=== PATIENT | female | born 2000 | race Caucasian/White ===

== ENCOUNTER → 2019-06-13 | Outpatient (CLI) | payer BC ==
[2019-06-13 13:44] LABS: HEMOGLOBIN 14.1 g/dL (12.0-15.0); MEAN CELL VOLUME 92 fl (78-95); MEAN CORPUSCULAR HEMOGLOBIN 30 pg (26-32); MEAN CORPUSCULAR HGB CONC 33 g/dL (33-37); MEAN PLATELET VOLUME 10.2 fl (7.4-10.4); PLATELET COUNT 256 K/mm3 (130-400); RED CELL DISTRIBUTION WIDTH 12.5 % (11.5-14.5)
[2019-06-13 13:49] LABS: ALBUMIN 4.1 g/dL (3.5-5.0); POTASSIUM 4.2 mmol/L (3.5-5.1); SODIUM 142 mmol/L (136-145)
[2019-06-13 13:50] LABS: CALCIUM 9.8 mg/dL (8.3-10.5)
[2019-06-13 13:51] LABS: TOTAL PROTEIN 7.5 g/dL (6.4-8.3)
[2019-06-13 13:52] LABS: CARBON DIOXIDE 24 mmol/L (22-29); GLUCOSE 85 mg/dL (65-105)
[2019-06-13 13:53] LABS: TOTAL BILIRUBIN 0.5 mg/dL (0.2-1.2)
[2019-06-13 13:57] LABS: AST-SGOT 27 U/L (5-34)
[2019-06-13 13:58] LABS: ALT/SGPT 39 U/L (0-55)
[2019-06-13 14:09] LABS: LYMPHOCYTE 34 % (20-51); MONOCYTE 12 % (1-10); NEUTROPHILS 49 % (42-75)
[2019-06-13 14:43] LABS: ERYTHROCYTE SEDIMENTATION RATE 3 mm/hr (0-20)
== END ==
LOC: LAB 13:32
PROVIDERS: Family Medicine
DX: Z00.00 Encounter for general adult medical examination without abnormal findings (principal); Z13.220 Encounter for screening for lipoid disorders; R53.83 Other fatigue

== ENCOUNTER → 2023-01-12 | Outpatient (CLI) | payer BC ==
[2023-01-12 16:54] LABS: BASO # 0.04 K/mm3 (0.02-0.10); EOS # 0.16 K/mm3 (0.04-0.40); EOS % 2.4 % (1.0-5.0); HEMATOCRIT 42.4 % (37.0-47.0); HEMOGLOBIN 13.8 g/dL (12.5-16.0); LYMPH# 2.22 K/mm3 (1.50-4.00); MEAN CELL VOLUME 95 fl (78-100); MEAN CORPUSCULAR HEMOGLOBIN 31 pg (27-31); MEAN CORPUSCULAR HGB CONC 33 g/dL (33-37); MEAN PLATELET VOLUME 10.6 fl (7.4-10.4); MONO # 0.59 K/mm3 (0.20-0.80); NEU # 3.74 K/mm3 (1.40-6.50); PLATELET COUNT 248 K/mm3 (130-400); RED BLOOD COUNT 4.46 M/mm3 (4.10-5.30); RED CELL DISTRIBUTION WIDTH 11.6 % (11.5-14.5); WHITE BLOOD COUNT 6.8 K/mm3 (4.8-10.8)
[2023-01-12 17:02] LABS: ALBUMIN 4.3 g/dL (3.5-5.0); POTASSIUM 3.7 mmol/L (3.5-5.1)
[2023-01-12 17:03] LABS: CALCIUM 9.6 mg/dL (8.3-10.5)
[2023-01-12 17:05] LABS: TOTAL PROTEIN 7.3 g/dL (6.4-8.3)
[2023-01-12 17:07] LABS: TOTAL BILIRUBIN 0.3 mg/dL (0.2-1.2)
== END ==
LOC: LAB 16:37
PROVIDERS: Nurse Practitioner
DX: R53.83 Other fatigue (principal)